=== PATIENT | female | born 1955 | race Caucasian/White ===

== ENCOUNTER 2019-05-12 04:40 | Inpatient (IN) ==
--- NOTE | 2019-05-03 17:44 | EKG Report ---
Test Performed on : 05/03/2019 5:31:44 PM Test Reason : PAT Blood Pressure : / mmHG Vent. Rate : 055 BPM Atrial Rate : 055 BPM P-R Int : 172 ms QRS Dur : 094 ms QT Int : 384 ms P-R-T Axes : 067 071 076 degrees QTc Int : 367 ms Sinus bradycardia. Otherwise normal ECG No previous ECGs available Unconfirmed Result
[2019-05-03 17:55] LABS: URINE SOURCE CLEAN CATCH
[2019-05-03 18:02] LABS: BASO# 0.04 X1000 (0.0-0.2); BASO% 0.8 % (0.0-0.8); EOS# 0.28 X1000 (0.0-0.7); EOS% 5.4 % (0.0-10.0); HEMATOCRIT 40.7 % (37.0-47.0); HEMOGLOBIN 13.8 g/dL (12.0-16.0); LYMPH# 2.57 X1000 (1.2-3.4); LYMPH% 49.1 % (20.5-51.1); MCH 33.1 PG (27-31); MCHC 33.9 g/dL (33-37); MCV 97.6 FL (81-99); MONO# 0.48 X1000 (0.11-0.59); MONO% 9.2 % (1.7-9.3); MPV 10.5 FL (7.4-10.4); NEUT# 1.86 X1000 (1.4-6.5); NEUT% 35.5 % (42.2-75.2); PLT 220 X1000 (130-400); RBC 4.17 XMIL (4.2-5.4); RDW 11.9 % (11.5-14.5); WBC 5.23 X1000 (4.8-10.8)
[2019-05-03 18:05] LABS: BILIRUBIN URINE NEGATIVE (NEGATIVE); BLOOD URINE NEGATIVE (NEGATIVE); COLOR STRAW; GLUCOSE URINE NEGATIVE (NEGATIVE); KETONE URINE NEGATIVE (NEGATIVE); LEUKOCYTES URINE NEGATIVE (NEGATIVE); NITRITE URINE NEGATIVE (NEGATIVE); PROTEIN URINE NEGATIVE (NEGATIVE); SP GRAVITY URINE 1.007; TURBIDITY URINE CLEAR (CLEAR); UROBILINOGEN URINE NORMAL (NORMAL)
[2019-05-03 18:06] LABS: UR EPITHELIAL CELLS <10 /HPF (<10); URINE BACTERIA NEGATIVE /HPF; URINE RBC <10 /HPF (<10); URINE WBC <10 /HPF (<10)
[2019-05-03 18:12] LABS: HEMOGLOBIN A1C 5.6 % (4.8-6.0)
[2019-05-03 18:15] LABS: INR 0.97; PTT 29.2 Seconds (22.3-41.8)
[2019-05-03 18:17] LABS: AGAP 12; ALBUMIN 4.7 g/dL (3.5-5.0); BUN 17 mg/dL (8-22); CALCIUM 9.4 mg/dL (8.8-10.2); CHLORIDE 93 mmol/L (98-107); COSMO 267; CREATININE 0.6 mg/dL (0.5-0.9); ESTIMATED GFR > 60; GLUCOSE 83 mg/dL (70-104); POTASSIUM 4.6 mmol/L (3.5-5.1); SODIUM 133 mmol/L (136-145); TCO2 28 mmol/L (25-35)
[2019-05-12] MEDS ORDERED: KEFZOL 1 GM/D5W 1 GM/50 ML IVPB ONE (05:36)
[2019-05-12] MEDS ORDERED: LYRICA ONE (05:36)
[2019-05-12] MEDS ORDERED: REGLAN ONE (05:36)
[2019-05-12] MEDS ORDERED: COLACE ONE (05:36)
[2019-05-12] MEDS ORDERED: PEPCID ONE (05:36)
[2019-05-12] MEDS ORDERED: LR 1,000 ML ONE (05:37)
[2019-05-12] MEDS ORDERED: VERSED ONE (06:00)
[2019-05-12] MEDS ORDERED: FENTANYL ONE (06:01)
[2019-05-12] MEDS ORDERED: DIPRIVAN 1% ONE (06:01)
[2019-05-12] MEDS ORDERED: ZOFRAN ONE (06:13)
[2019-05-12] MEDS ORDERED: NORCURON ONE (06:13)
[2019-05-12] MEDS ORDERED: QUELICIN (DOSE) ONE (06:13)
[2019-05-12] MEDS ORDERED: XYLOCAINE-MPF 2% ONE (06:13)
[2019-05-12] MEDS ORDERED: ROBINUL ONE (06:13)
[2019-05-12] MEDS ORDERED: SOLU-CORTEF ONE (06:13)
[2019-05-12] MEDS ORDERED: STERILE WATER INJ. ONE (06:13)
[2019-05-12] MEDS ORDERED: NEO-SYNEPHRINE ONE (06:13)
[2019-05-12] MEDS ORDERED: TORADOL ONE (06:32)
[2019-05-12] MEDS ORDERED: DURAMORPH ONE (06:32)
[2019-05-12] MEDS ORDERED: MARCAINE 0.25% PF ONE (06:32)
[2019-05-12] MEDS ORDERED: CYKLOKAPRON 1,000 MG/NS 1,000 MG/100 ML IVPB ONE (06:33)
[2019-05-12] MEDS ORDERED: SODIUM CHLORIDE 0.9% ONE (06:33)
[2019-05-12] MEDS ORDERED: VANCOMYCIN ONE ×2 (06:33→07:35)
[2019-05-12] MEDS ORDERED: EXPAREL 1.3% ONE (06:33)
[2019-05-12] MEDS ORDERED: TRANSDERM-SCOP ONE (07:02)
[2019-05-12] MEDS ORDERED: GENTAMICIN ONE (07:35)
[2019-05-12] MEDS ORDERED: EPHEDRINE ONE (09:00)
[2019-05-12] MEDS ORDERED: OXY IR PO PRN (09:20)
[2019-05-12] MEDS ORDERED: AMBIEN PO PRN (09:20)
[2019-05-12] MEDS ORDERED: MORPHINE IV PRN (09:20)
[2019-05-12] MEDS ORDERED: ZOFRAN IV PRN (09:20)
[2019-05-12] MEDS ORDERED: ZOFRAN PO PRN (09:20)
[2019-05-12] MEDS ORDERED: VANCOMYCIN 1 GM/NS 1 GM/250 ML IVPB IV ONE (09:20)
[2019-05-12] MEDS ORDERED: MILK OF MAGNESIA PO PRN (09:20)
[2019-05-12] MEDS ORDERED: KEFZOL 2 GM/D5W 2 GM/50 ML IVPB IV SCH (09:30)
[2019-05-12] MEDS: DILAUDID ONE ×4 (09:41→09:57)
[2019-05-12] MEDS: NS 1,000 ML IV SCH ×2 (10:30→22:20)
[2019-05-12 10:31] LABS: URINE SOURCE CATH
--- NOTE | 2019-05-12 10:35 | Diag Imaging Result Doc PS360 ---
EXAM: SHOULDER-RIGHT HISTORY: Post-op TECHNIQUE: Three views COMPARISON: None. FINDINGS: There has been orthopedic replacement of the shoulder. Good positioning. No fracture. No separation to the common clavicular joint. IMPRESSION: There appears to be good positioning of the orthopedic prosthesis. Electronically signed by Cholo Salmon 05/12/2019 10:33 AM
[2019-05-12 10:37] LABS: BILIRUBIN URINE NEGATIVE (NEGATIVE); BLOOD URINE NEGATIVE (NEGATIVE); COLOR STRAW; GLUCOSE URINE NEGATIVE (NEGATIVE); KETONE URINE NEGATIVE (NEGATIVE); LEUKOCYTES URINE NEGATIVE (NEGATIVE); NITRITE URINE NEGATIVE (NEGATIVE); PH URINE 6.5; PROTEIN URINE NEGATIVE (NEGATIVE); SP GRAVITY URINE 1.008; TURBIDITY URINE CLEAR (CLEAR); UR EPITHELIAL CELLS <10 /HPF (<10); URINE BACTERIA NEGATIVE /HPF; URINE RBC <10 /HPF (<10); URINE WBC <10 /HPF (<10); UROBILINOGEN URINE NORMAL (NORMAL)
[2019-05-12] MEDS: ULTRAM PO SCH ×2 (13:23→22:13)
[2019-05-12] MEDS: TYLENOL PO SCH ×2 (13:24→22:12)
[2019-05-12] MEDS: KEFZOL 1 GM/D5W 1 GM/50 ML IVPB IV SCH ×2 (14:47→22:15)
[2019-05-12] MEDS: OXY IR PO PRN (18:07)
--- NOTE | 2019-05-12 19:34 | OPERATIVE NOTE ---
PROCEDURE DATE: 05/12/2019 SERVICE: Orthopaedic Surgery. PREOPERATIVE DIAGNOSES: 1. Right shoulder rotator cuff arthropathy with rotator cuff tear. 2. Right shoulder osteoarthritis. POSTOPERATIVE DIAGNOSES: 1. Right shoulder rotator cuff arthropathy with rotator cuff tear. 2. Right shoulder osteoarthritis. PROCEDURE: Right reverse shoulder arthroplasty. SURGEON: Leon Means MD. ASSISTANTS: 1. Radha Whitney, whose presence was necessary for retraction and placement of implants. 2. Scooby Hilario. ANESTHESIA: General endotracheal anesthesia. COMPLICATIONS: None. SPECIMENS: None. DRAINS: One Hemovac drain was placed in the right shoulder. BLOOD LOSS: 100 mL. IMPLANTS: Ex[employer]ech Equinoxe reverse shoulder arthroplasty system was used with a small reverse glenoid baseplate, a small reverse 36 mm glenosphere, an 11 mm press-fit preserve humeral stem, with a +5 mm humeral tray and a +0, 36 mm humeral liner. INDICATIONS FOR PROCEDURE: Ms. Gordillo is a 64-year-old lady who has been followed in clinic for complaints of right shoulder pain. She tried and failed conservative treatment modalities including physical therapy, oral anti-inflammatories, and intra-articular injections. An MRI was done demonstrating significant glenohumeral arthritis, a high-riding humeral head, rotator cuff tear with supraspinatus and infraspinatus tendons with retraction of the tendons. She was also found to have some atrophy of her supraspinatus and infraspinatus. Given these findings, the decision was made to proceed with right reverse shoulder arthroplasty. Risks, benefits, alternative therapies were discussed with the patient regarding surgery. Risks of surgery include, but are not limited to, risks of bleeding, infection, damage to nerves and vessels around the area, continued pain following surgery, need for revision surgery. There is also risk of anesthesia including blood clot, stroke, heart attack, even . Patient understands these risks. All questions were answered. Informed consent was obtained. PROCEDURE IN DETAIL: Ms. Gordillo was identified by wrist band and greeted in preoperative holding area on 05/12/2019. Her right upper extremity which was the operative site was marked with indelible ink per [facility] protocol. Following this, the patient was transferred back to the operating room for surgery. Upon entering the OR, she was transferred in supine position on the Skytron table. All bony prominences were well padded. General endotracheal anesthesia was then induced. At this time, the patient was placed into a modified beach-chair position. Her head was taped in position ensuring neutral alignment of her spine. Pillows were placed under the knees to take pressure off her sciatic nerve. Once all bony prominences were well padded and we were satisfied with the position, the right upper extremity was then prepped and draped in routine sterile fashion. Formal time-out was performed confirming correct and patient, procedure, operative site, operative side, administration of preoperative antibiotics. Everyone was in agreement. The patient received 2 g Ancef prior to incision. She also received 1 g of TXA prior to incision. A 10-blade knife was used to make a standard 10 cm incision over the anterior aspect of the shoulder for deltopectoral approach. A knife was used to dissect through skin. Bovie cautery was then used to dissect through subcutaneous tissue down to deltoid fascia. Full- thickness skin flaps were developed. The cephalic vein and fat stripe triangle were identified up by the coracoid and deltopectoral interval was split. At this time, subdeltoid and subacromial release were performed, and a brown deltoid retractor was placed laterally. A Bovie was used to incise clavipectoral fascia and interval underneath the conjoint tendon was then opened up. Axillary nerve was palpated. A Hazel retractor was then carefully placed retracting conjoint medially. At this time, Bovie was used to take down the superior 15 mm of pectoralis major tendon insertion. Bovie was then used to enter the biceps sheath. Patient has a chronic biceps tendon tear and tendon was not visible. Once this was done, a large 15 mm loose body was removed from the bicipital sheath, which was appreciated on x-ray. Curved Romero scissors were then used to trace up the bicipital groove into the rotator interval to the glenoid. At this time, we were then able to visualize articular cartilage. Next, 2-0 Vicryl tag sutures were used to ligate the 3 sisters on the anterior aspect of subscapularis. We then performed our subscapularis tenotomy in line with the margin of the articular surface of the humerus. Once subscapularis was fully released as well as the inferior capsule around the edge of the humerus, we then removed our retractors and placed a Villeda retractor along the posterior edge of the glenoid, pushing the humeral head posterior and lateral. Curved Romero scissors were used to develop the interval between the capsule and undersurface of the subscapularis. Capsule was then cut from the surface, allowing us to free up subscapularis and tuck it back into the subscapularis fossa. At this time, Batman retractor was placed over the anterior and inferior glenoid. Bovie cautery was then used to carefully remove the labrum from the superior and interior aspect of the glenoid down to the 6 o'clock position. A plastic sucker tip was used to assist with retraction along the inferior glenoid as not to conduct electricity and injure axillary nerve. Once this was done, we then turned our attention back to the humerus. Brown retractor was then placed, followed by a Darrach providing excellent exposure of the humeral head. Bovie was used to grabiel circumferentially the edge of the articular cartilage insertion of the remaining rotator cuff. We then freehanded our cut along this articular margin using a sagittal saw. The patient was found to have significant supraspinatus and infraspinatus tear. Once our cut was made, we then placed a canal finder, followed by broaching using impaction broaching method. A size 11 broach was found to have a good fit. We set the version at 25 degrees of retroversion. Once this was done, our trial stem was left in place and the humeral head protector was placed. We then again turned our attention to the glenoid. The Villeda retractor was placed along the posterior lip of the glenoid, followed by a Batman anteriorly and a Hohmann superiorly. We had excellent exposure of the glenoid. Bovie was used to complete our labral and capsular release around the edge of the glenoid along the posterior edge. Once this was done, the small reverse baseplate guide was placed and the center hole was drilled. We then reamed our glenoid with the circular reamer followed by a bow-tie reamer. Our center PEG was then drilled over the K-wire. At this time, our small glenoid baseplate was impacted in position. We then proceeded with placement of 4 screws, which had excellent purchase. Locking caps were placed and our 36 mm glenosphere was then placed and locked in position. At this time, we checked the periphery around the edge of the glenoid and found to have no overhang. Retractors were then removed and humeral head was brought into the wound. We then placed a trial humeral tray and poly, and I took the shoulder through a range of motion. We had excellent stability with a +5 mm humeral tray and a 0 mm polyethylene liner. The final implants were thus opened. Wound was copiously irrigated with normal saline, including the canal. We then impacted our size 11 stem, followed by placement of our final implants. The shoulder was reduced, taken through a range of motion, and found to have excellent range of motion and stability. At this time, the wound was copiously irrigated with normal saline. Next, 0.35% Betadine solution was poured into the wound. After this, we copiously irrigated the Betadine out of the wound. We then closed our subscapularis using 2-0 FiberWire sutures. Rotator interval was also closed with 2-0 FiberWire suture. Exparel cocktail injection was then injected around the capsule, rotator cuff, subscapularis, deltoid, and pectoralis major muscles. A spinal needle was then placed to the lateral aspect of the shoulder outside the wound, into the joint, for injection of gentamicin solution into the joint at the end of the case. Following this, 1 g of vancomycin powder was placed in the wound. Next, #1 Vicryl suture was used to repair our pectoralis tendon. A Hemovac drain was then placed in the subdeltoid space. Next, 0 Vicryl suture was then used to close down her deltopectoral interval. Our skin injection was then placed for local anesthetic. At this time, 2-0 Vicryl sutures were used for subcutaneous tissue closure, followed by 3-0 Monocryl for skin closure. Prineo dressing was then placed, and 160 mL mg of gentamicin was injected into the joint. At this time, once Prineo had dried, island dressing was placed. The patient was placed into an abduction sling, extubated, transferred to a hospital stretcher in stable condition. There were no acute complications during the procedure. All sponge and sharp counts were correct at conclusion of procedure. [facility]
[2019-05-12] MEDS: PERIDEX MT SCH (22:13)
[2019-05-12] MEDS: COLACE PO SCH (22:13)
[2019-05-13] MEDS: OXY IR PO PRN ×4 (02:09→18:55)
[2019-05-13] MEDS: ULTRAM PO SCH ×3 (03:41→16:01)
[2019-05-13] MEDS: TYLENOL PO SCH ×3 (03:41→16:01)
--- NOTE | 2019-05-13 04:18 | ORTHOPAEDICS PROGRESS NOTE ---
DATE: 05/12/2019 SUBJECTIVE: No acute events. Patient is still a little bit groggy from anesthesia. Overall she is doing well. She states her pain is pretty well controlled. She has been tolerating some clear liquids, but has not had any food yet. OBJECTIVE: Afebrile. Vital signs stable.Extremities: Examination of right upper extremity shows surgical dressing to be clean, dry, intact. Sling is in place with abduction pillow behind the elbow, as instructed. WILD drain is in place with minimal output. Motor intact to AIN, PIN, ulnar nerve and axillary nerve distribution. Sensation intact to light touch median, radial, ulnar, axillary nerves. Radial pulse palpable and equal bilaterally. IMAGING: AP and scapular Y-views of the right shoulder were obtained demonstrating interval placement of reverse shoulder arthroplasty prosthesis. The hardware is in good position. Glenohumeral joint was well reduced. ASSESSMENT: A 64-year-old female status post right reverse shoulder arthroplasty, postoperative day 0. PLAN: 1. The patient worked with physical therapy and Occupational therapy to learn how to doff and don her sling as well as work on elbow, wrist and hand range of motion. I want her to refrain from any weightbearing activities or any active motion of the right shoulder for now. 2. Ancef x24 hours for prophylactic antibiotics. 3. Aspirin for DVT prophylaxis. 4. Ice to right upper extremity as needed for pain. 5. We will plan on discontinuing Santo catheter in the morning. 6. Advance diet as tolerated. 7. Disposition: The patient will likely plan on being discharged home tomorrow as long as her pain is well controlled on p.o. pain medication, she is tolerating diet and has met physical therapy goals.
[2019-05-13 06:40] LABS: HEMATOCRIT 30.3 % (37.0-47.0); HEMOGLOBIN 10.2 g/dL (12.0-16.0)
[2019-05-13 06:59] LABS: AGAP 8; BUN 8 mg/dL (8-22); CALCIUM 8.1 mg/dL (8.8-10.2); CHLORIDE 94 mmol/L (98-107); COSMO 254; CREATININE 0.5 mg/dL (0.5-0.9); ESTIMATED GFR > 60; GLUCOSE 106 mg/dL (70-104); POTASSIUM 4.1 mmol/L (3.5-5.1); SODIUM 127 mmol/L (136-145); TCO2 25 mmol/L (25-35)
[2019-05-13] MEDS: COLACE PO SCH (08:17)
[2019-05-13] MEDS: PERIDEX MT SCH (15:12)
[2019-05-13 15:29] VITALS: BP 137/67
--- NOTE | 2019-05-13 19:00 | ORTHOPAEDICS PROGRESS NOTE ---
DATE: 05/13/2019 SUBJECTIVE/OBJECTIVE: Ms. Gordillo is seen status post reverse shoulder replacement. This morning, she is afebrile with stable vital signs. She appears to be motor and sensory intact. She has [id number] pain and is using her pain medicine appropriately. She is awake and alert. ASSESSMENT/PLAN: We will plan on the discontinuing the drain. She can be discharged home later today. She will follow up with Dr. Means in roughly 10 days. cc: Darrin Santoyo MD
== END 2019-05-13 19:08 | disposition home or self-care (01) | DRG 483 ==
LOC: SURHOLD 04:40 → 4N 10:35
PROVIDERS: ADMIT Orthopaedic Surgery Sports Medicine; ATTEND Orthopaedic Surgery Sports Medicine